=== PATIENT | male | born 1960 | race Caucasian/White ===

== ENCOUNTER → 2017-01-27 | Day surgery (SDC) | payer OTHER ==
[~2017-01-27] MED LIST: BUPIVACAINE HCL PF 0.75% 30 ML VIAL ONE; BUPIVACAINE/EPINEPHRINE 0.5% 50 ML VIAL ONE; LACTATED RINGER'S 1000 ML INJ 1,000 ML ONE; LIDOCAINE 1.5%/EPINEPHrine 1:200,000 PF SOLN 30 ML AMP ONE; MIDAZOLAM HCL 2 MG/2 ML VIAL ONE; OXYC1SOL5 PO; OXYC1TAB13 PO; PERC10TA27 PO; PROPOFOL 200 MG/20 ML AMP IV ONE; ceFAZolin INJ 1,000 MG VIAL ONE; oxyCODONE/ACETAMINOPHEN 5 MG/325 MG TAB ONE
--- NOTE | 2017-01-27 18:53 | MP ---
cc: TUSHAR MAE M.D. DATE OF SURGERY: 01/27/2017. PREOPERATIVE DIAGNOSIS: Right shoulder lipoma. POSTOPERATIVE DIAGNOSIS: Right shoulder lipoma, pending pathology. OPERATIVE PROCEDURE PERFORMED: Right shoulder exploration and excision of lipoma. SURGEON: Tushar Mae M.D. ANESTHESIA: General. LITHOGRAPHIC PROOFER APPRENTICE SURGEON: Klever GABRIEL. ESTIMATED BLOOD LOSS: Minimum. DRAINS: None. SPECIMEN: Lipoma sent routine. INDICATIONS FOR THE PROCEDURE: Chandler Romano is a 56-year-old male who has had an enlarging lipoma over the lateral aspect of the shoulder for some time. He is having increasing pain in the lipoma and we worked it up with an MRI which was consistent with a lipoma and also showed some multiple other abnormalities of his shoulder but they did not correspond with his clinical scenario of pain directly at the swollen site, the enlarged site, the site of the mass, the site of the lipoma. Based on symptomatology and enlarging size, recommendation for exploration and excision of the lipoma. The risks and benefits were thoroughly discussed and the risks of bleeding, blood loss, infection, were all reviewed as well as the possibility of inability to remove all the lipoma and having to go back at a later date, the possibility of recurrent lipoma growth in the future, the risk of anesthetic complications, medical complications, and unforeseen possible complications. He wished to press on with surgery. A detailed informed consent was obtained. NOTE: It should be noted that the library circulation assistant, Klever Bridges, is an advanced registered nurse practitioner who subspecializes in orthopedic surgery, and his skill set was medically necessary to assist with the performance of the operation. This required delicate retraction and appropriate exposure of the soft tissue to perform the surgery. DESCRIPTION OF THE PROCEDURE IN DETAIL: The patient was brought to the operating room. He was placed under general anesthetic. The right shoulder was prepped and draped in the usual sterile fashion. IV antibiotics were given. Time-out was completed. We palpated the mass and we identified the Celia's lines and then made crosshatches using an ink pen on the skin for a later repair and then made a saber type incision slightly lateral overlying the mass and took this through the subcutaneous tissue and into the fatty tissue and identified the mass. The mass was sent difficult to identify and to separate from the other subcutaneous tissue. We proceeded with resection of the mass based on the bulk of the mass and we took fatty tissue and subcutaneous tissue as well and tapered this so that cosmetically there would not be a significant indentation. The mass was all the way down to the deltoid fascial layer and we brought this right off it and no significant neurovascular bundle was identified. We were very delicate throughout and then thoroughly inspected the medial and lateral flap and then fine-tuned and smoothed for cosmetic reasons removal of additional fat so that it would be a smooth contour to the shoulder. We irrigated out with copious amounts of irrigation. We had meticulous hemostasis. We proceeded to close with absorbable sutures and used Dermabond on the skin. We allowed the Dermabond to dry and then we placed a Telfa and Tegaderm dressing. The patient was awakened and returned to the recovery room in stable condition. MD RON Amezcua/MAJOR /1:40 PM /6:45 PM
== END | disposition home or self-care (01) ==
LOC: ESDC 09:29
PROVIDERS: ATTEND Orthopaedic Surgery Sports Medicine
DX: D17.21 Benign lipomatous neoplasm of skin and subcutaneous tissue of right arm (principal)
CPT/HCPCS: 01610; 23073; 88304; J0690; J2250; J3010; J7120